=== PATIENT | male | born 1945 | race Caucasian/White ===

== ENCOUNTER → 2018-06-10 | Outpatient (REF) | payer MEDICARE ==
[~2018-06-10] MED LIST: ALLERGY MED; AMLODIPINE5 MG PO; AMOXICILLIN875 MG PO; ASPIRIN EC325 MG PO; ATORVASTATIN CA40 MG PO; AUGMENTIN875TAB PO; B COMPLE1 OR; FAMCICLOVIR500 MG PO; LISINOP/HCTZ1 TAB PO; METFORMIN500 MG PO; MOBIC7.5 M1 PO; MULTI VIT PO; NAPROSYN500 MG PO; TRIAMCINOLON0.11 EX; VALTREX1 GM PO; ZOFRAN ODT4 MG OR; ZOFRAN ODT4 MG PO
[2018-06-10 13:06] LABS: ALBUMIN 4.6 g/dL (3.2-5.0); ALKALINE PHOSPHATASE 59 u/l (38-126); ANION GAP 16 (6-22 (CALC)); BILIRUBIN, TOTAL 0.5 mg/dL (0.0-1.4); BUN 12 mg/dL (8-23); BUN/CREATININE RATIO 10 (12-20 (CALC)); CALCULATED LDLCHOLESTEROL 85 mg/dL (62-129 (CALC)); CARBON DIOXIDE 29 mmol/l (22-30); CHLORIDE 107 mmol/l (95-108); CHOLESTEROL HDL RATIO 3.1 (<4.4 (CALC)); CREATININE 1.2 mg/dL (0.7-1.3); GFR 60 ML/MIN (>=60 (CALC)); GFR FOR AFR.AMER. > 60 ML/MIN (>=60 (CALC)); HDL CHOLESTEROL 49 mg/dL (>=40); POTASSIUM 4.2 mmol/l (3.5-5.1); SGOT/AST 25 u/l (19-48); SODIUM 147 mmol/l (137-146); TOTAL CHOLESTEROL 150 mg/dl (0-199); TOTAL PROTEIN 7.6 g/dL (6.3-8.2); TOTAL TRIGLYCERIDES 83 mg/dl (30-149); VLDL CHOLESTROL 17 mg/dl (0-38 (CALC))
== END | disposition home or self-care (01) ==
LOC: LAB 12:16
PROVIDERS: ATTEND Nurse Practitioner Adult Health
DX: E11.65 Type 2 diabetes mellitus with hyperglycemia (principal); E78.5 Hyperlipidemia, unspecified; I10 Essential (primary) hypertension

== ENCOUNTER 2021-05-20 14:57 | Observation (INO) | payer MEDICARE ==
[~2021-05-20] VITALS: Ht 182.9 cm; Wt 65.0 kg
[~2021-05-20 14:57] MED LIST changes: +ASPIRIN ENTERIC81 MG PO; +BACTRIM DS1 TAB PO; +LISINOPRIL10 MG PO; +PLAVIX75 MG PO; +[UNRECOGNIZED DRUG - OTHER] MT
--- NOTE | 2021-05-20 15:29 | NUR ---
PT ESCORTED TO ROOM 9 VIA WHEELCHAIR WITH CAREGIVER AT BEDSIDE
[2021-05-20 15:47] LABS: HEMATOCRIT 39.1 % (39.0-50.0); HEMOGLOBIN 12.4 g/dl (14.0-18.0); IMMATURE GRANULOCYTES 0.2 % (0.0-5.0); MEAN CELL VOLUME 90.1 fL CALC (80.0-100.0); MEAN CORPUSCULAR HGB 28.6 pG CALC (26.0-32.0); MEAN CORPUSCULAR HGB CONC 31.7 g/dL CAL (32.0-36.0); NEUT# 6.14 thou/uL (1.82-7.42); RED BLOOD COUNT 4.34 mill/uL (4.70-6.10); RED CELL DISTRI WIDTH 13.3 % (11.5-15.5)
[2021-05-20 15:56] LABS: ALBUMIN 3.7 g/dL (3.2-5.0); ALKALINE PHOSPHATASE 70 u/l (38-126); ANION GAP 11 (6-22 (CALC)); BILIRUBIN, TOTAL 0.7 mg/dL (0.0-1.4); BUN 25 mg/dL (8-23); BUN/CREATININE RATIO 16 (12-20 (CALC)); CARBON DIOXIDE 30 mmol/l (22-30); CHLORIDE 100 mmol/l (95-108); CREATININE 1.5 mg/dL (0.7-1.3); GFR 46 ML/MIN (>=60 (CALC)); GFR FOR AFR.AMER. 55 ML/MIN (>=60 (CALC)); POTASSIUM 3.8 mmol/l (3.5-5.1); SGOT/AST 52 u/l (19-48); SODIUM 136 mmol/l (137-146); TOTAL PROTEIN 8.4 g/dL (6.3-8.2)
[2021-05-20 16:07] LABS: MYOGLOBIN 36 ng/mL (0 - 121)
--- NOTE | 2021-05-20 16:23 | NUR ---
INFORMED PATIENT THAT A URINE IS NEEDED. FLUIDS INFUSING. WATER GIVEN.
[2021-05-20 17:40] LABS: URINE BILIRUBIN - DIPSTICK NEGATIVE (NEGATIVE); URINE BLOOD DIPSTICK TRACE-INTACT (NEGATIVE); URINE COLOR YELLOW; URINE GLUCOSE - DIPSTICK NEGATIVE (NEGATIVE); URINE KETONE NEGATIVE (NEGATIVE); URINE LEUK ESTERASE SMALL (NEGATIVE); URINE NITRITE - DIPSTICK POSITIVE (Negative); URINE PH 5.5 (4.5-8.0); URINE PROTEIN - DIPSTICK 30 mg/dL (NEG-TRACE); URINE SPECIFIC GRAVITY 1.025
[2021-05-20 17:41] LABS: URINE BACTERIA FEW hpf; URINE RBC 0-2 RBC/hpf (0-5); URINE WHITE BLOOD CELL CAST FEW lpf
[2021-05-20] MEDS ORDERED: OMNICEF300 M1 PO (19:09)
--- NOTE | 2021-05-20 19:30 | NUR ---
REPORT RECEIVED FROM RAHEL.
--- NOTE | 2021-05-20 19:52 | NUR ---
REPORT RECEIVED FROM Epi LI LPN
--- NOTE | 2021-05-20 20:00 | NUR ---
REPORT CALLED TO FLOOR BY JUVENAL MILLS. PT TAKEN TO FLOOR VIA W/C BY XAVIER TOLBERT. POCKET MONITOR ON PT.
--- NOTE | 2021-05-20 20:07 | NUR ---
JUAN F COMPLETED A THIS TIME. PT REQUESTING SOME THING TO DRINK AND EXTRA BLANKETS BECAUSE HE IS VERY TIRED AND COLD.
--- NOTE | 2021-05-20 20:07 | NUR ---
PT ARRIVED ON FLOOR VIA STRETCHER ACCOMPANIED BY A JOSEP PARK
--- NOTE | 2021-05-20 23:45 | NUR ---
PATIENT RESTING COMFORTABLY, DENIES ANY CURRENT NEEDS. CALL LIGHT AND BEDSIDE TABLE WITHIN REACH.
--- NOTE | 2021-05-21 04:45 | NUR ---
PT REQUESTING COLD WATER AT THIS TIME. PROVIDED [employer]ESS ENGINEER. NO FURTHER NEEDS APPARENT AT THIS TIME. CALL LIGHT AND BEDSIDE TABLE WITHIN REACH.
[2021-05-21 05:27] VITALS: BP 162/69
[2021-05-21 05:46] LABS: CREATININE 1.4 mg/dL (0.7-1.3); POTASSIUM 3.7 mmol/l (3.5-5.1)
[2021-05-21 05:50] LABS: HEMATOCRIT 35.2 % (39.0-50.0); HEMOGLOBIN 11.2 g/dl (14.0-18.0); MEAN CELL VOLUME 89.3 fL CALC (80.0-100.0); MEAN CORPUSCULAR HGB 28.4 pG CALC (26.0-32.0); MEAN CORPUSCULAR HGB CONC 31.8 g/dL CAL (32.0-36.0); RED BLOOD COUNT 3.94 mill/uL (4.70-6.10); RED CELL DISTRI WIDTH 13.1 % (11.5-15.5)
[2021-05-21 07:40] VITALS: BP 168/77
--- NOTE | 2021-05-21 08:01 | NUR ---
ASSESSMENT DONE. PATIENT IS ALERT AND ORIENT X3. PATIENT DENIES PAIN. RESPS EVEN AND UNLABORED. TELE IN PLACE. PROVIDED PATIENT WITH APPLE JUICE AND HE TOOK A FEW SIPS. PATIENT DENIES ANY OTHER NEEDS. CALL LIGHT IN REACH.
[2021-05-21 10:55] VITALS: BP 145/76
--- NOTE | 2021-05-21 12:09 | NUR ---
TRY TO SETUP FOR LUNCH BUT HE STATED LATER. PATIENT STATED HE WANTS TO REST. CALL LIGHT IN REACH.
[2021-05-21 14:19] VITALS: BP 144/77
--- NOTE | 2021-05-21 15:50 | NUR ---
PATIENT IS RESTING IN BED WITH NO DISTRESS NOTED. PROVIDED PATIENT WITH JUICE PER PATIENT REQUEST. PATIENT DENIES ANY OTHER NEEDS AT THIS TIME. CALL LIGHT IN REACH.
[2021-05-21 19:00] VITALS: BP 163/74
--- NOTE | 2021-05-21 20:00 | NUR ---
PHYSICAL ASSESMENT COMPLETE. PT CURRENTLY DENIES PAIN OR DISCOMFORT. SCHEDULED MEDICATIONS AND PRN MEDICATION ADMINISTERED, SEE E-MAR. PT DENIES ANY NEEDS AT THIS TIME. PLAN OF CARE REVIEWED, PT DENIES QUESTIONS, VERBALIZES UNDERSTANDING. ITEMS WITHIN REACH, BED LOCKED IN LOW POSITION W/ BEDRAILS UP X2. CALL JOYA WITHIN REACH, AGREES TO CALL PRN.
[2021-05-22 00:20] VITALS: BP 157/73
--- NOTE | 2021-05-22 02:37 | NUR ---
PT LAYING IN BED WITH EYES CLOSED, APPEARS TO BE SLEEPING, APPEARS COMFORTABLE AND IN NO DISTRESS. RESPIRATIONS REGULAR AND UNLABORED. ITEMS REMAIN WITHIN REACH, CALL JOYA REMAINS WITHIN REACH. BED REMAINS LOCKED AND IN LOW POSITION WITH BEDRAILS UP X2. WILL CONTINUE TO MONITOR.
[2021-05-22 04:00] VITALS: BP 161/78
[2021-05-22 06:09] LABS: HEMATOCRIT 32.5 % (39.0-50.0); HEMOGLOBIN 10.3 g/dl (14.0-18.0); MEAN CORPUSCULAR HGB 28.5 pG CALC (26.0-32.0); MEAN CORPUSCULAR HGB CONC 31.7 g/dL CAL (32.0-36.0); NEUT# 3.92 thou/uL (1.82-7.42); RED BLOOD COUNT 3.61 mill/uL (4.70-6.10); RED CELL DISTRI WIDTH 13.1 % (11.5-15.5)
[2021-05-22 06:38] LABS: ANION GAP 9 (6-22 (CALC)); BUN 12 mg/dL (8-23); BUN/CREATININE RATIO 9 (12-20 (CALC)); CARBON DIOXIDE 26 mmol/l (22-30); CHLORIDE 105 mmol/l (95-108); CREATININE 1.2 mg/dL (0.7-1.3); GFR 59 ML/MIN (>=60 (CALC)); GFR FOR AFR.AMER. > 60 ML/MIN (>=60 (CALC)); MAGNESIUM 1.9 mg/dL (1.6-2.3); SODIUM 136 mmol/l (137-146)
--- NOTE | 2021-05-22 07:00 | NUR ---
REPORT FROM PILO PARK. ASSUMED PT CARE.
[2021-05-22 07:52] VITALS: BP 163/77
--- NOTE | 2021-05-22 10:15 | NUR ---
PT SITTING UP IN CHAIR AT BEDSIDE. PT REQUESTS TO GET BACK INTO BED AT THIS TIME. NO APPARENT DISTRESS NOTED. CLEAN LINENS PROVIDED. STAND BY WITH MINIMAL ASSIST BACK INTO BED. PT STEADY ON FEET. ABLE TO REPOSITION SELF IN BED. CALL LIGHT WITHIN REACH. WILL CONTINUE TO MONITOR.
--- NOTE | 2021-05-22 10:20 | NUR ---
PHYSICIAN AT BEDSIDE.
[2021-05-22 10:59] VITALS: BP 153/72
--- NOTE | 2021-05-22 11:01 | NUR ---
RETURNED PHONE CALL TO SIGNIFICANT OTHER PER PT. MESSAGE LEFT ON MACHINE.
--- NOTE | 2021-05-22 11:41 | NUR ---
S- Pt reported being week. 0- Pt resting in bed. Able to roll side to side x 4 reps with use of bed rails and min assist. Supine to sit x 2 with mod asssit of upper body. Sit to supine with min assist. LE AROM ex performed in bed including bridging, heel slides hip abd, ankle DF x 10-15reps, sitting LE ex x 10 reps for LAQ and marching. Pt ambulated in room with RW 2x 20' with CGA/min assist. Pt required vc for for safety issues, reaching for chair before sitting, pushing off surface. Transfer to commode with min assist. BP 158/74 to 156/74, HR 74-81, 02sats 96-97%. Time spent with pt 50 min A- Pt with general weakness, [facility] P- Will follow per POC.
--- NOTE | 2021-05-22 12:10 | NUR ---
pt sitting up in bed eating lunch. no apparent distress noted. respirations even and unlabored. pt denies any pain or discomfort. call light within reach. will continue to monitor.
[2021-05-22] MEDS ORDERED: OMNICEF300 M1 PO (12:58)
[2021-05-22 15:00] VITALS: BP 157/88
--- NOTE | 2021-05-22 16:10 | NUR ---
IV site discontinued, cath intact. No edema , no redness, voices no discomfort.
--- NOTE | 2021-05-22 16:27 | NUR ---
Discharge instructions given. Patient verbalizes understanding of same. Discharged in stable condition via Wheelchair to Home with family. All belongings sent with pt.
== END 2021-05-22 16:27 | disposition home health service (06) ==
LOC: ED 14:57 → ED-I 19:06 → ED 19:20 → MS2 19:21
PROVIDERS: Emergency Medicine; Internal Medicine; ADMIT Hospitalist; ATTEND Hospitalist
DX: N39.0 Urinary tract infection, site not specified (principal); R62.7 Adult failure to thrive; Z68.1 Body mass index [BMI] 19.9 or less, adult; E86.0 Dehydration; E87.1 Hypo-osmolality and hyponatremia; N17.9 Acute kidney failure, unspecified; I10 Essential (primary) hypertension; E11.9 Type 2 diabetes mellitus without complications; I25.10 Atherosclerotic heart disease of native coronary artery without angina pectoris; E78.5 Hyperlipidemia, unspecified; B96.20 Unspecified Escherichia coli [E. coli] as the cause of diseases classified elsewhere; Z86.73 Personal history of transient ischemic attack (TIA), and cerebral infarction without residual deficits; Z20.822 Contact with and (suspected) exposure to COVID-19
CPT/HCPCS: G0378

== ENCOUNTER 2022-04-03 08:16 | Day surgery (SDC) | payer MEDICARE ==
[~2022-04-03] VITALS: Ht 182.9 cm; Wt 86.2 kg
[~2022-04-03 08:16] MED LIST changes: +ACCU-CHEK FASTCLIX L XX; +LIDODERM5 % EX; +OMNICEF300 M1 PO; +PHYSICIANS1000 MCG/M IM; +[UNRECOGNIZED DRUG - SUPPLY] STI
[2022-04-03 13:51] VITALS: BP 177/89
== END 2022-04-03 12:45 | disposition home or self-care (01) ==
LOC: ORM 08:16
PROVIDERS: ATTEND Physical Medicine & Rehabilitation
DX: M47.816 Spondylosis without myelopathy or radiculopathy, lumbar region (principal)
CPT/HCPCS: J3490